=== PATIENT | male | born 1960 | race African-American/Black ===

== ENCOUNTER 2017-02-11 05:22 | Emergency (ER) | payer SELFPAY ==
[~2017-02-11] VITALS: Ht 182.9 cm; Wt 114.1 kg
[2017-02-11 05:28] VITALS: BP 126/79
[2017-02-11] MEDS ORDERED: IBUPROFEN 200 MG TABLET ONE (05:54)
[2017-02-11] MEDS ORDERED: CEFTRIAXONE 250 MG ONE (05:55)
[2017-02-11] MEDS ORDERED: AZITHROMYCIN 250 MG TABLET ONE (05:55)
[2017-02-11] MEDS ORDERED: IBUPROFEN 200 MG TABLET PO ONE (06:00)
[2017-02-11] MEDS ORDERED: CEFTRIAXONE 250 MG IM ONE (06:00)
[2017-02-11] MEDS ORDERED: AZITHROMYCIN 500 MG TABLET PO ONE (06:00)
== END 2017-02-11 06:19 | disposition home or self-care (01) ==
LOC: ED 05:58
DX: A56.01 Chlamydial cystitis and urethritis (principal); A54.01 Gonococcal cystitis and urethritis, unspecified; R30.0 Dysuria
CPT/HCPCS: 87491; 87591; 96372; 99284; J0696